=== PATIENT | male | born 1985 | race Two or more races ===

== ENCOUNTER 2017-12-30 10:19 | Emergency (ER) | payer OTHER ==
[~2017-12-30] VITALS: Ht 175.3 cm; Wt 61.2 kg
== END 2017-12-30 11:56 | disposition home or self-care (01) ==
LOC: ER 10:19
DX: K52.1 Toxic gastroenteritis and colitis (principal); T50.995A Adverse effect of other drugs, medicaments and biological substances, initial encounter

== ENCOUNTER 2020-01-10 04:20 | Emergency (ER) | payer OTHER ==
[~2020-01-10] VITALS: Ht 175.3 cm; Wt 59.0 kg
[2020-01-10] MEDS ORDERED: INTESTINEX680 M1 PO (10:15)
[2020-01-10] MEDS ORDERED: PEPCID AC20 MG PO (10:15)
[2020-01-10] MEDS ORDERED: FLAGYL500MG PO (10:15)
[2020-01-10] MEDS ORDERED: CIPRO500 MG PO (10:15)
== END 2020-01-10 12:04 | disposition home or self-care (01) ==
LOC: ER 04:20
DX: K52.89 Other specified noninfective gastroenteritis and colitis (principal); E86.0 Dehydration; Z03.818 Encounter for observation for suspected exposure to other biological agents ruled out

== ENCOUNTER 2024-04-25 21:19 | Emergency (ER) | payer OTHER ==
[~2024-04-25] VITALS: Ht 175.3 cm; Wt 61.2 kg
[~2024-04-25 21:19] MED LIST: CIPRO500 MG PO; FLAGYL500MG PO; INTESTINEX680 M1 PO; PEPCID AC20 MG PO
[2024-04-25] MEDS ORDERED: LIDOCAINE HCL 1% 10ML VIAL IJ ONE (22:15)
[2024-04-25] MEDS ORDERED: CEFTRIAXONE SODIUM 1,000 MG VIAL IM ONE (22:15)
[2024-04-25] MEDS ORDERED: TETANUS & DIPHTHERIA TOX,ADULT 0.5 ML VIAL IM ONE (22:15)
[2024-04-25] MEDS ORDERED: DUI500 PO (22:42)
== END 2024-04-25 22:49 | disposition home or self-care (01) ==
LOC: ER 21:19
DX: S91.321A Laceration with foreign body, right foot, initial encounter (principal); W45.8XXA Other foreign body or object entering through skin, initial encounter; W22.8XXA Striking against or struck by other objects, initial encounter; Y93.89 Activity, other specified; Y92.413 State road as the place of occurrence of the external cause

== ENCOUNTER 2024-05-03 11:06 | Emergency (ER) | payer OTHER ==
[~2024-05-03] VITALS: Ht 175.3 cm; Wt 61.2 kg
[~2024-05-03 11:06] MED LIST changes: +DUI500 PO
[2024-05-03 14:34] VITALS: BP 114/78; O2SAT 99
== END 2024-05-03 14:35 | disposition home or self-care (01) ==
LOC: ER 11:07
DX: Z48.02 Encounter for removal of sutures (principal)